=== PATIENT | male | born 1975 | race Caucasian/White ===

== ENCOUNTER 2018-01-21 14:28 | Outpatient (CLI) | payer BC, SELFPAY ==
--- NOTE | 2018-01-21 14:38 | DI.RAD_ITS ---
SYMPTOMS/DIAGNOSIS: COUGH FOR 6 WKS, POOR AIR MOVEMENT ON EXAM, ? UPPER RESPIRATORY INFECTION PA AND LATERAL CHEST: Comparison 11/12/16. The heart is normal in size. The lungs are clear. The mediastinal structures and pleura appear intact. CONCLUSION: Normal chest.
== END 2018-01-21 14:48 ==
PROVIDERS: PCP Family Medicine; Visit Provider Family Medicine
DX: R05 Cough (principal); R06.89 Other abnormalities of breathing
CPT/HCPCS: 71046

== ENCOUNTER 2018-02-21 15:55 | Outpatient (CLI) | payer BC, SELFPAY ==
--- NOTE | 2018-02-21 15:14 | DI.RAD_ITS ---
SYMPTOM/DIAGNOSIS: COUGH WITH WHEEZING AND RHONCHI, BRONCHITIS J40 PA AND LATERAL CHEST: Comparison is made with 21 Jan 2018. The heart is mildly enlarged, unchanged. The lungs appear clear. The exam is somewhat limited by the patient's body habitus. IMPRESSION: No acute abnormality.
== END 2018-02-21 16:15 ==
PROVIDERS: PCP Family Medicine; Visit Provider Family Medicine
DX: R05 Cough (principal); R06.2 Wheezing; J98.8 Other specified respiratory disorders; I51.7 Cardiomegaly
CPT/HCPCS: 71046

== ENCOUNTER 2019-09-15 07:35 | Outpatient (CLI) | payer BC, SELFPAY ==
[2019-09-15 19:31] LABS: COVID-19 RT-PCR UVMMC Result Negative (Negative)
== END 2019-09-15 07:55 ==
PROVIDERS: PCP Family Medicine; Visit Provider Nurse Practitioner
DX: R05 Cough (principal)
CPT/HCPCS: U0003

== ENCOUNTER 2019-12-15 03:05 | Outpatient (CLI) | payer BC, SELFPAY ==
[2019-12-17 13:46] LABS: Patient Race White; SARS-CoV-2 RNA Undetected (Undetected); SARS-CoV-2 Specimen Source Nasopharynx
== END 2019-12-15 03:25 ==
PROVIDERS: PCP Family Medicine; Visit Provider Family Medicine
DX: J40 Bronchitis, not specified as acute or chronic (principal)
CPT/HCPCS: U0003

== ENCOUNTER 2020-01-03 02:56 | Outpatient (CLI) | payer BC, SELFPAY ==
[2020-01-03 08:48] LABS: ALT 41 U/L (16-63); AST 17 U/L (15-37); Albumin 3.7 g/dL (3.4-5.0); Alkaline Phosphatase 86 U/L (46-116); Anion Gap 5.7 mmol/L (3-11); BUN 21 mg/dL (7-18); Bilirubin, Total 0.4 mg/dL (0.2-1.0); CO2 31.3 mmol/L (21.0-32.0); CREATININE 0.93 mg/dL (0.70-1.30); Calcium 8.7 mg/dL (8.5-10.1); Calculated LDL 115 mg/dL (<100); Chloride 103 mmol/L (98-107); Cholesterol 176 mg/dL (<200); Glucose 99 mg/dL (74-106); HDL Cholesterol 45 mg/dL (40-60); Potassium 4.5 mmol/L (3.5-5.1); Sodium 140 mmol/L (136-145); Total Protein 7.1 g/dL (6.4-8.2); Triglyceride 84 mg/dL (<150)
== END 2020-01-03 03:16 ==
PROVIDERS: PCP Family Medicine; Visit Provider Family Medicine
DX: E66.01 Morbid (severe) obesity due to excess calories (principal)
CPT/HCPCS: 36415; 80053; 80061

== ENCOUNTER 2021-02-17 19:11 | Emergency (ER) | payer BC, SELFPAY ==
[2021-02-17 19:20] VITALS: BP 152/77; PULSE 94; RESP 18; TEMP 37; O2SAT 100
[2021-02-17] MEDS: Fluorescein STRIPS 100/BOX 1 MG (19:45)
[2021-02-17] MEDS: Tetracaine 0.5% 4 ML BTL (19:45)
--- NOTE | 2021-02-17 20:13 | ED.GENADUL_ITS ---
Discharge Plan Disposition Patient Disposition: HOME Condition: Stable Discharge Details Clinical Impression: Abrasion of cornea, left Primary Care Provider: David Arita ED Provider: Rina Domingo Home Meds and New Rx's Prescriptions: No Action ketotifen fumarate 0.025 % (0.035 %) drops 1 drp ophthalmic (eye) BID PRN (Reason: allergy symptoms) Qty: 5 RF: 6 ibuprofen [Advil] 200 MG tablet 400 mg PO TID PRN PRNRF: 0 loratadine 10 MG tablet 10 mg PO DAILY 60 Days Qty: 60 RF: 1 fexofenadine [Iesha Allergy] 180 mg tablet 180 mg PO DAILY RF: 0 montelukast 10 mg tablet 10 mg PO BID Qty: 180 RF: 3 albuterol sulfate [Ventolin HFA] 90 mcg/actuation HFA aerosol inhaler 2 puff IH Q6H PRN (Reason: shortness of breath or wheezing) Qty: 18 RF: 12 Advair HFA 230-21 mcg/actuation HFA aerosol inhaler 2 puff IH Q12H Qty: 12 RF: 12 tamsulosin 0.4 mg capsule 0.8 mg PO DAILY Qty: 180 RF: 3 Discharge Instructions Instructions: Polymyxin B/Trimethoprim (Into the eye), Corneal Abrasion (ED) Additional Instructions: Use the eyedrops 3 times a day while awake and to the left eye. Please follow- up with [facility] for further evaluation. Try not to rub your eye. Please take Tylenol or Ibuprofen with food every 4-6 hours as needed for pain and swelling. [address], [place] [address] Hours: Referrals: David Arita DO [Primary Care Provider] - Medical Decision Making 45-year-old male presents with left eye irritation and possible foreign body sensation and yesterday. He denies any known injury. He reports that his may have seen something to his upper eyelid. He denies any drainage. On initial exam he does have slightly injected conjunctive a, no visualized foreign body however he does have some uptake of dye at 12:00. With lab exam performed small uptake of dye noted at 12 o'clock above the iris. No visualized foreign body. Discussed follow-up with [facility] patient verbalized understanding. Patient was given polymyxin antibiotic eyedrops and discussed on home care. This text was generated using roomlin[employer] dictation system, please disregard any oddities of phrase or misspellings. HPI General Mode of arrival: ambulatory . Date/Time Provider Initiated Documentation: 02/17/21 20:02 . Limitations to Documentation: no limitations . Information obtained by: patient and RN notes reviewed . HPI Narrative: 45-year-old male presents with left eye irritation and possible foreign body sensation and yesterday. He denies any known injury. He reports that his may have seen something to his upper eyelid. He denies any drainage. On initial exam he does have slightly injected conjunctive a, no visualized foreign body however he does have some uptake of dye at 12:00. Related Data Home Medications Medication Instructions Recorded Confirmed ibuprofen [Advil] 400 mg PO TID PRN PRN 02/06/15 02/17/21 loratadine 10 mg PO DAILY 60 Days #60 tab-cap 10/29/17 02/17/21 fexofenadine 180 mg tablet 180 mg PO DAILY 01/31/20 02/17/21 montelukast 10 mg tablet 10 mg PO BID #180 tab 04/12/20 02/17/21 ketotifen fumarate 0.025 % (0.035 1 drp OPHTHALMIC (EYE) BID PRN #5 04/19/20 02/17/21 %) eye drops ml albuterol sulfate 90 mcg/actuation 2 puff IH Q6H PRN #18 gm 10/11/20 02/17/21 aerosol inhaler fluticasone propionate 230 2 puff IH Q12H #12 gm 10/11/20 02/17/21 mcg-salmeterol 21 mcg/actuation HFA inhaler tamsulosin 0.4 mg capsule 0.8 mg PO DAILY #180 cap 01/06/21 02/17/21 Previous Rx's Medication Instructions Recorded loratadine 10 mg PO DAILY 60 Days #60 tab-cap 10/29/17 montelukast 10 mg tablet 10 mg PO BID #180 tab 04/12/20 ketotifen fumarate 0.025 % (0.035 1 drp OPHTHALMIC (EYE) BID PRN #5 04/19/20 %) eye drops ml albuterol sulfate 90 mcg/actuation 2 puff IH Q6H PRN #18 gm 10/11/20 aerosol inhaler fluticasone propionate 230 2 puff IH Q12H #12 gm 10/11/20 mcg-salmeterol 21 mcg/actuation HFA inhaler tamsulosin 0.4 mg capsule 0.8 mg PO DAILY #180 cap 01/06/21 Allergies Allergy/AdvReac Type Severity Reaction Status Date / Time penicillin G Allergy Unknown told he Verified 02/17/21 19:29 was allergic by mother, don't know severity General Stated Complaint: EyeProblem DAYNE: 4 Review of Systems All systems reviewed & are unremarkable except as noted in HPI and below Eyes Eyes: Reports irritation, Reports itchy eyes and Denies loss of vision Neurologic Neurologic: Denies loss of vision Allergic/Immunologic Allergic/Immunologic: Reports itchy eyes [facility] Active Problem List (Updated 09/05/18 @ 14:58 by Lili Kenney RN) Allergic conjunctivitis (Acute) Allergic rhinitis due to pollen (Acute) Moderate persistent asthma (Acute) Chronic rhinosinusitis (Acute) Seasonal allergic rhinitis (Acute) Conjunctivitis (Acute) Sinusitis (Acute) Cough (Acute) BPH w urinary obs/LUTS (Acute) Status post total left knee replacement (Chronic 03/18/15) Osteoarthritis (Chronic) Obstructive sleep apnea syndrome (Chronic) Morbid obesity (Chronic 01/12/14) Knee pain (Chronic) 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 Swathi Hurtado md oxyntic type mucosa with no specific pathologic abnormality Family History Mother Essential hypertension Diabetes Father No problems noted. Brother No problems noted. Social History Smoking/Tobacco Use Status: Never Smoking risk assessment performed?: Yes Alcohol Intake: current Alcohol Intake frequency: holidays/special occasions only Alcohol type: beer Drug use: Never Substance use type: does not use Household members: spouse and children Number of Children: 5 Communication Needs: None current occupation: works for [employer] What is your relationship status?: Panel score (0-1 are the most socially isolated patients): 1 What type of physical activity do you participate in: none Seatbelt use: never Drive intox or ride w/intox refuse driver: No Working smoke detector in home: Yes Fire extinguisher in home: Yes Carbon monox detector in home: Yes Do you feel safe at home: Yes Do you feel safe in your relationship?: Yes Exam Eyes General: appearance normal, both eyes and all related structures Alignment and Position: alignment normal Conjunctivae: conjunctival abnormality left conjunctival injection localized; without discharge and without subconjunctival hemmorhages Cornea: corneas abnormal on the left fluorescein used and abrasion (12 o clock, linear) linear and at the following clock position; without ulcerations and fluorescein used Pupils: PERRL and normal by confrontation Direct ophthalmoscopy: normal light reflex Eyes/upper lids images: 1. Corneal abrasion, uptake of dye Course Vital Signs Vital signs: Vital Signs Temperature 37.0 C 02/17/21 19:20 Pulse 94 H 02/17/21 19:20 Respiratory Rate 18 02/17/21 19:20 Blood Pressure 152/77 H 02/17/21 19:20 Pulse Oximetry 100 02/17/21 19:20 Temperature 37.0 C 02/17/21 19:20 Temperature Source Oral 02/17/21 19:20 Pulse 94 H 02/17/21 19:20 Respiratory Rate 18 02/17/21 19:20 Respiratory Effort Non-Labored 02/17/21 19:33 Blood Pressure 152/77 H 02/17/21 19:20 Blood Pressure Position Sitting 02/17/21 19:20 Pulse Oximetry 100 02/17/21 19:20 Oxygen Delivery Method Room Air 02/17/21 19:20 Oxygen Flow Rate 0 02/17/21 19:20 Pain Level 4 02/17/21 19:20
[2021-02-17] MEDS: Polymyxin B/Trimethoprim Ophth Soln 10 ML BTL OS (20:21)
== END 2021-02-17 20:34 | disposition home or self-care (01) ==
PROVIDERS: Emergency Provider Registered Nurse Emergency; PCP Family Medicine
DX: S05.02XA Injury of conjunctiva and corneal abrasion without foreign body, left eye, initial encounter (principal); X58.XXXA Exposure to other specified factors, initial encounter
CPT/HCPCS: 99283

== ENCOUNTER 2022-08-07 01:25 | Outpatient (CLI) | payer BC, SELFPAY ==
[2022-08-07 08:44] LABS: ALT 40 U/L (16-63); AST 20 U/L (15-37); Albumin 3.6 g/dL (3.4-5.0); Alkaline Phosphatase 89 U/L (46-116); Anion Gap 6.8 mmol/L (3-11); BUN 19 mg/dL (7-18); Bilirubin, Total 0.4 mg/dL (0.2-1.0); CO2 28.2 mmol/L (21.0-32.0); CREATININE 0.9 mg/dL (0.70-1.30); Calcium 8.6 mg/dL (8.5-10.1); Calculated LDL 107 mg/dL (<100); Chloride 104 mmol/L (98-107); Cholesterol 165 mg/dL (<200); Estimated GFR 105.35 (mL/min/1.73m2); Glucose 93 mg/dL (74-106); HDL Cholesterol 50 mg/dL (40-60); Sodium 139 mmol/L (136-145); Total Protein 7.6 g/dL (6.4-8.2); Triglyceride 41 mg/dL (<150)
== END 2022-08-07 01:26 | disposition home or self-care (01) ==
LOC: LBO 01:25
PROVIDERS: PCP Family Medicine; Referring Provider Family Medicine; Visit Provider Family Medicine
DX: E66.01 Morbid (severe) obesity due to excess calories (principal)
CPT/HCPCS: 36415; 80053; 80061

== ENCOUNTER 2023-12-08 02:32 | Outpatient (CLI) | payer BC, SELFPAY ==
[2023-12-08 08:19] LABS: ALT 31 U/L (16-63); AST 17 U/L (15-37); Albumin 3.7 g/dL (3.4-5.0); Alkaline Phosphatase 90 U/L (46-116); Anion Gap 7.2 mmol/L (3-11); BUN 21 mg/dL (7-18); Bilirubin, Total 0.45 mg/dL (0.2-1.0); CO2 30.8 mmol/L (21.0-32.0); CREATININE 1.1 mg/dL (0.70-1.30); Calcium 9.1 mg/dL (8.5-10.1); Calculated LDL 118 mg/dL (<100); Chloride 103 mmol/L (98-107); Cholesterol 181 mg/dL (<200); Estimated GFR 82.29 (mL/min/1.73m2); Glucose 90 mg/dL (74-106); HDL Cholesterol 52 mg/dL (40-60); Sodium 141 mmol/L (136-145); Total Protein 7.6 g/dL (6.4-8.2); Triglyceride 57 mg/dL (<150)
== END 2023-12-08 02:33 | disposition home or self-care (01) ==
LOC: LBO 02:32
PROVIDERS: PCP Family Medicine; Referring Provider Family Medicine; Visit Provider Family Medicine
DX: E66.01 Morbid (severe) obesity due to excess calories (principal)
CPT/HCPCS: 36415; 80053; 80061